=== PATIENT | female | born 1940 | race Caucasian/White ===

== ENCOUNTER 2017-08-08 07:18 | Outpatient (CLI) | payer MEDICARE, OTHER | END 2017-08-08 07:19 | disposition short-term general hospital (02) | LOC: EMS 07:18 | PROVIDERS: ATTEND Surgery | DX: R06.02 Shortness of breath (principal); R11.2 Nausea with vomiting, unspecified; R05 Cough | CPT/HCPCS: A0425; A0429; A0888 ==